=== PATIENT | female | born 1960 | race Caucasian/White ===

== ENCOUNTER 2024-05-24 08:22 | Emergency (ER) | payer BC, SELFPAY ==
[2024-05-24 08:24] VITALS: BP 165/106
[2024-05-24 08:47] VITALS: BP 148/98
--- NOTE | 2024-05-24 08:48 | ED.GENMED ---
History of Present Illness
General
Chief Complaint: Dizziness
Source: patient
Exam Limitations: none
Time Seen by Provider: 05/24/24 08:27
History of Present Illness
History of Present Illness:
63-year-old female with history of hypertension who takes losartan/HCTZ 50/12.5 twice a day presents with the onset of dizziness overnight last night. She rolled over in bed and felt a spinning sensation. She tried looking out the window and it
look like her vision was skewed and angled. She was nauseous with this. She notes a slight headache. She denies any unilateral numbness or weakness. No loss of vision no double vision. She thinks she forgot her blood pressure medication last
night. She is here visiting from [place] she just drove in yesterday. No significant chest pain or shortness of breath. No recent fever or URI symptoms
Phy Exam
Physical Exam
Physical Exam:
General: Well-appearing female no acute respiratory distress
HEENT: Normocephalic atraumatic pupils equal round reactive to light there is horizontal nystagmus noted on extraocular motion testing
Heart: Regular rate and rhythm no murmurs
Lungs: Clear no wheeze or rales
Neurologic exam: Alert and oriented x 3 finger-nose [id number] intact conversing appropriate no facial asymmetry no aphasia or dysarthria Henderson-Hallpike maneuver positive for significant symptoms when turning to the right. The dizziness lasts
around 10 seconds and seems to fade.
Extremities: No cyanosis or edema.
Course
Orders/Labs/Results
Orders:
Orders
05/24/24 08:46
Electrocardiogram (*1) Urgent
Reason for Study: Vertigo / Dizzy
CT Head W/o Iv Contrast Urgent
Comment:
Reason For Exam: dizziness
EKG- Treatment ONCE
PT Consult [Pt Eval And Treat] Urgent
Treatment: Vestibular eval
Activity Level: Ambulate
05/24/24 08:53
Complete Blood Count/With Diff Urgent
Comprehensive Metabolic Panel Urgent
05/24/24 09:55
Meclizine [Antivert] 25 mg PO NOW STA
Abnormal Lab Results
05/24/24
08:53
MCH 31.7 H pg
(27.0-31.0)
MPV 11.0 H fL
(7.4-10.4)
Absolute Lymphs (auto) 0.5 L 10^3/uL
(1.2-3.4)
Immature Gran % 0.6 H %
(0-0.5)
Neutrophils % 82.1 H %
(42.2-75.2)
Lymphocytes % 9.0 L %
(20.5-51.1)
Glucose 140 H mg/dl
(70-99)
AST 100 H U/L
(14-36)
ALT 116 H U/L
(0-35)
05/24/24 08:53
05/24/24 08:53
Vital Signs
Initial and Last Documented VS:
Initial Vital Signs
Pulse Resp BP Pulse Ox
87 16 165/106 98
05/24/24 08:24 05/24/24 08:24 05/24/24 08:24 05/24/24 08:24
Last Documented Vital Signs
Pulse Resp BP Pulse Ox
88 29 144/93 99
05/24/24 09:34 05/24/24 09:34 05/24/24 09:00 05/24/24 09:03
MDM/Problems Addressed
Differential Diagnosis Includes:
Dizziness. consider positional vertigo for centrally cause vertigo versus electrolyte abnormality or anemia also check for arrhythmia
MDM/Problems Addressed:
Will check labs and EKG. Patient has a slight headache with subtle elevated blood pressure. CT pending but highly suspect positional vertigo. Consult physical therapy for vestibular eval. Consider treatment with meclizine as vestibular eval
Chronic conditions affecting care:
HTN this is
Acute Exacerbation and/or Progression of Chronic Illness:
This is an acute problem
*Critical Care Note
Total Time (30-74mins, 75-104mins- exclusive of procedures): Not Applicable
Update Note
Update Note:
CT shows no acute findings but there is volume loss noted. Patient evaluated by vestibular rehab and patient does have positional vertigo. She is noticing some improvement after the Rachel maneuver. Will treat now with meclizine. Patient is
ambulatory. She is stable for discharge. She was given information about vestibular rehab and meclizine was prescribed.
ED Attending Note
-
Portions of this chart may have been created with voice recognition software.� Occasional wrong word or��sound alike� substitutions may have occurred due to the inherent limitations of voice recognition software.
Discharge Plan
Departure
Patient Disposition: Home (Routine Discharge)
Date of Disposition: 05/24/24
Time of Disposition: 10:15
Patient with high blood pressure during this ER visit?: No
Discharge Problem:
Vertigo
Instructions: Vertigo (a type of dizziness)
Prescriptions:
New
meclizine 25 mg tablet
25 mg PO TID PRN (Reason: dizziness) Qty: 10 0RF
Activity Restrictions/Additional Instructions:
You may use meclizine up to 3 times a day for dizziness. Consider starting vestibular rehab when you return home to [place]. You should not take meclizine the morning of vestibular rehab. Return if needed otherwise
Interventions
Interventions:
*Risk Screen - Suicide Last Done: 05/24/24 08:24
*General Assessment Last Done: 05/24/24 08:53
*Neglect/Abuse Screening Last Done: 05/24/24 08:24
ED- Fall Risk Assessment Last Done: 05/24/24 08:53
*ED COVID-19 Vaccine History Last Done: 05/24/24 08:53
ED- Neurological Assessment Last Done: 05/24/24 08:53
ED- Cardiac Assessment Last Done: 05/24/24 08:53
ED Swallowing Screen Last Done: 05/24/24 08:53
Discharge Date and Time
Print Language: [id number]
[2024-05-24 08:53] VITALS: BMI 31.3
[2024-05-24 09:00] VITALS: BP 144/93
[2024-05-24 09:08] LABS: % Basophils 0.6 % (0-2); % Eosinophils 0.4 % (0-6); % Immature Granulocytes 0.6 % (0-0.5); % Monocytes 7.3 % (1.7-9.3); % Neutrophils 82.1 % (42.2-75.2); Absolute Lymphocytes 0.5 10^3/uL (1.2-3.4); Absolute Monocytes 0.4 10^3/uL (0.1-0.6); Absolute Neutrophils 4.2 10^3/uL (1.4-6.5); Hematocrit 39.3 % (37.0-47.0); Hemoglobin 13.7 g/dL (12.0-16.0); Mean Corp Hgb Conc. 34.9 g/dL (33.0-37.0); Mean Corpuscular Hgb 31.7 pg (27.0-31.0); Nucleated Red Blood Cells % 0 %; Platelet Count 194 10^3/uL (130-400); Red Blood Cell Count 4.32 10^6/uL (4.20-5.40); Red Cell Dist. Width 12.3 % (11.5-14.5); White Blood Cell Count 5.1 10^3/uL (4.8-10.8)
[2024-05-24 09:26] LABS: ALT (SGPT) 116 U/L (0-35); AST (SGOT) 100 U/L (14-36); Albumin 4.5 g/dl (3.5-5.0); Alkaline Phosphatase 63 U/L (38-126); Blood Urea Nitrogen 17 mg/dl (7-17); Calcium 9.4 mg/dl (8.4-10.2); Carbon Dioxide 26 mmol/L (22-30); Chloride 101 mmol/L (98-107); Estimated Creatinine Clearance 102 ml/min; Glucose 140 mg/dl (70-99); Potassium 4.1 mmol/L (3.5-5.1); Sodium 136 mmol/L (135-145); Total Bilirubin 1.2 mg/dl (0.2-1.3); Total Protein 6.9 g/dl (6.3-8.2); eGFR > 60.00
[2024-05-24 09:48] VITALS: BP 156/108; PULSE 83
[2024-05-24] MEDS: ANTIVERT 25 MG PO (10:06)
== END 2024-05-24 10:30 | disposition home or self-care (01) ==
LOC: EMR 08:22
PROVIDERS: Physician Assistant; EMERGENCY PHYSICIAN Student in an Organized Health Care Education/Training Program
DX: R42 Dizziness and giddiness (principal); R51.9 Headache, unspecified; R11.0 Nausea
CPT/HCPCS: 99285; 70450; 80053; 85025; 93005